=== PATIENT | female | born 1955 | race Caucasian/White ===

== ENCOUNTER → 2016-04-17 | Outpatient (CLI) | payer OTHER ==
[~2016-04-17] MED LIST: ABILIFY10 MG; ABILIFY15 MG PO; ACETAMINOPHEN325 M1; ACID CONTROLLER10 MG PO; ACTOS 30 MG TAB30 MG PO; ADULT LOW DOSE81 MG PO; ADVAIR 250-501 EACH IH; ADVAIR HFA 1112 UNIT INH; AFLURIA 2045 MCG/0.4; ALDACTONE25 MG PO; ALDACTONE50 MG PO; ALLEGRA180 MG PO; AMARYL4 MG PO; AMLODIPINE BESYL5 MG PO; AMOXICILLIN/POTASSIU OR; AMPICILLIN TRI500 MG PO; ASA81BEC; ASPIR 8181 MG PO; ASPIRIN EC81 M1 PO; ASPIRIN81 M2 PO; ATORVASTATIN CA20 MG PO; AUGMENTIN 875-1 EACH PO; AUGMENTIN 875875 MG PO; AVAPRO300 MG PO; B12INJ PO; BENICAR PO; BENICAR20 MG PO; BYETTA PEN 11 PENIN1 SUBQ; BYETTA PEN 11 PENINJ SUBQ; BYSTOLIC 5 MG5 M1 PO; CAL-LAC100 MG; CALCIUM OYSTER500 MG PO; CALCIUM PO; CARDIZEM CD180 MG PO; CARDURA2 MG PO; CARDURA4 MG PO; CARISOPRODOL 3350 MG PO; CARVEDILOL12.5 MG PO; CARVEDILOL25 MG PO; CARVEDILOL6.25 MG PO; CEFUROXIME250 MG PO; CENTRUM SILVER1 EAC1 PO; CIPRO250 M1 PO; CLEOCIN HCL300 MG PO; CLONAZEPAM 0.50.5 M1 PO; CLONAZEPAM 1 MG1 M1 PO; CLONAZEPAM PO; CLONIDINE HCL0.3 M3 PO; CLOPIDOGREL75 MG PO; CO Q-10100 MG PO; COREG CR20 MG PO; COREG25 MG PO; COUMADIN 2 MG TA2 M1; COUMADIN 2.5MG2.5 M1 PO; COUMADIN 3 MG TA3 M1 PO; COUMADIN 3 MG TA3 MG PO; COUMADIN 4 MG TA4 M1 PO; COUMADIN 5 MG TA5 M1; COUMADIN 5 MG TA5 M1 PO; COZAAR 25 MG TA25 M1 PO; CYCLOBENZAPRINE5 MG PO; CYMBALTA30 MG PO; CYMBALTA60 MG PO; DEMADEX20 MG PO; DEPAKOTE ER500 MG PO; DEX4 GLUCOSE1 EACH; DIABETA 5MG TABL5 MG PO; DILTIAZEM 24HR240 M1 PO; DIOVAN HCT 3201 EACH PO; DIOVAN160 MG PO; DIOVAN320 MG PO; DOXYCYCLINE 10100 MG PO; ENOXAPARIN100 MG/1 M SQ; ENOXAPARIN100 MG/11 SUBQ; FERREX 150150 MG PO; FISH OIL 1,0001 EAC5 PO; FISH OIL 1,2001 EAC4 PO; FUROSEMIDE 80 M80 M1 PO; GABAPENTIN 100100 MG PO; GLUCOPHAGE1000 MG PO; GLUCOSE 40% GEL; GLYBURIDE 1.21.25 MG PO; GLYBURIDE 5 MG T5 M1 PO; GLYBURIDE 5 MG T5 MG PO; GLYBURIDE PO; HUMALOG100 UNIT/2 SUBQ; HYDRALAZINE 2525 MG PO; HYDROCHLOROTHIA25 M1 PO; HYDROCODONE-AP1 EAC6 PO; HYDROCORTISONE 01 OZ TP; IMDUR 30 MG TAB30 M1; IMDUR 30 MG TAB30 M1 PO; INVOKAMET 50-51 EACH PO; IPRAT-ALBUT 0.5-3 ML IH; JANUVIA100 MG PO; K-DUR 20 MEQ T20 MEQ PO; KEFLEX500 MG PO; KLONOPIN0.5 MG PO; KLOR-CON 1010 MEQ PO; LACTINEX CHEWA1 EACH PO; LASIX 20 MG TAB20 MG PO; LEVAQUIN 500 M500 M2 PO; LEVEMIR SUBQ; LIPITOR10 MG PO; LIPITOR20 MG PO; LIPITOR40 MG PO; LISINOPRIL20 MG PO; MAG-OX 400 TAB400 MG PO; METFORMIN HCL500 MG PO; METOLAZONE 2.52.5 M1 PO; METOLAZONE 2.52.5 MG PO; MOTION RELIEF25 MG PO; MULTIVITAMINS; NADOLOL 20 MG T20 M1 PO; NIASPAN 500 MG500 M1 PO; NITROGLYCERIN0.4 MG SUBLING; NITROQUICK0.4 MG SUBLING; NORCO 5-325 TA1 EACH PO; NORVASC 5 MG TAB5 MG PO; NORVASC10 MG PO; NOVOLOG100 UNIT/1 SUBQ; NYSTATIN 1100000 U/M TOP; OMEGA-3100 MG PO; OMEPRAZOLE 20 M20 M1 PO; OMEPRAZOLE20 M2 PO; ONDANSETRON HCL4 M2 PO; OXYBUTYNIN 5 MG5 M1 PO; PACERONE 200 M200 M1 PO; PACERONE 200 M200 MG PO; PEPCID AC20 M1 PO; PEPCID20 MG PO; PEPCID40 MG PO; PERCOCET 10-321 EACH PO; PLAVIX 75 MG TA75 M1 PO; PNEUMOVAX25 MCG/0.5; POTASSIUM20 PO; PREDNISONE 10 M10 M1 PO; PREDNISONE10 MG PO; PRILOSEC 20 MG20 MG; PROAIR HFA8.5 GM; PROAIR HFA8.5 GM IH; PROAIR HFA8.5 GM INH; PROTONIX 20 MG20 M1 PO; PROTONIX40 M2 PO; REQUIP 1 MG TABL1 M1 PO; REQUIP1 MG PO; SEROQUEL 25 MG25 M1 PO; SEROQUEL 50 MG50 MG PO; SORINE 80 MG TA80 M1 PO; SORINE80 MG PO; SOTALOL160 MG PO; SPIRIVA INH; SPIRIVA18 MCG INH; STIOLTO RESPIMAT4 GM PO; SYMBICORT160 MCG/4. INH; TIKOSYN.5 PO; TOPAMAX100 MG PO; TORSEMIDE20 MG PO; TRAMADOL 50 MG50 MG PO; TYLENOL325 MG PO; ULTRAM 50MG TAB50 MG PO; VERAPAMIL E.R240 M1 PO; VESICARE10 M1 PO; VICTOZA0.6 MG/0.1; VICTOZA0.6 MG/0.1 SQ; VICTOZA0.6 MG/0.1 SUBQ; VITAMIN D1000 UNI1; VITAMIN D250000 UNIT PO; VITAMIN D35000 UNI1 PO; XOPENEX 0.63 MG/3 M1 INH; ZANAFLEX4 MG PO; ZANTAC 150MG T150 MG PO; ZANTAC PO; ZOLOFT100 MG PO
== END ==
LOC: RAD 01:14
DX: Z12.31 Encounter for screening mammogram for malignant neoplasm of breast (principal)

== ENCOUNTER 2016-06-19 14:11 | Inpatient (IN) | payer OTHER ==
[~2016-06-19] VITALS: Ht 162.6 cm; Wt 122.5 kg
[2016-06-19] VITALS (18 sets, daily range): BP systolic 112–155; BP diastolic 53–136
--- NOTE | ~2016-06-19 | EKG ---
[place] [address] [facility] [place] [address] ELECTROCARDIOGRAM REPORT Name: ANDREE SUTHERLAND Room #: 238-P ADM IN M.R.#: [id number] Admission: 06/19/16 Attend Phys: Mukesh Orona MD Discharge: Date of : 53 Report #: [id number] THIS REPORT FOR: //name// [facility] ED Test Date: 2016-06-19 Test Time: 14:20:38 Pat Name: ANDREE SUTHERLAND Department: Room: 238 Gender: F [employer] Coordinator: barry : 1955 Requested By: Muna Albrecht Order Number: [id number] MD: Augustine Paiz Measurements Intervals [place] Rate: 70 P: FL: QRS: -69 QRSD: 156 T: 94 QT: 469 QTc: 507 Interpretive Statements Afib and ventricular-paced rhythm No further analysis attempted due to paced rhythm Compared to ECG 03/28/2016 16:25:35 No significant changes Electronically Signed On 06-19-2016 19:10:49 CDT by Augustine Paiz [email or web address] <ELECTRONICALLY SIGNED> By: Augustine Paiz MD, [facility] 06/19/16 1910 1420 1420 Augustine Paiz MD, [facility] /EPI
--- NOTE | ~2016-06-19 | HC ---
[facility] [place] [address] CONSULTATION Name: ANDREE SUTHERLAND Room #: 238-P ADM IN M.R.#: [id number] Admission: 06/19/16 Attend Phys: Mukesh Orona MD Discharge: Date of : 53 Report #: [id number] THIS REPORT FOR: //name// CC: SHAHRZAD physician/PCP Mukesh Orona REASON FOR CONSULTATION: Respiratory failure. HISTORY OF PRESENT ILLNESS: The patient is a 60-year-old woman with history of permanent atrial fibrillation with AV node ablation and pacemaker implantation. She has a history of severe pulmonary hypertension and oxygen dependent lung disease. Apparently, she was found to be lethargic at home and paramedics were summoned. She was found with low oxygen saturations, confirmed in the emergency department and then intubated. Her history other than this is quite limited. She is currently sedated, intubated and ventilated. Her past history comes from review of the past medical record and includes a history of coronary artery disease with stenting in 2011 and then again medicated stent in 2012, permanent atrial fibrillation with AV node ablation and pacemaker implantation, oxygen dependent lung disease, bilateral hip replacements, diabetes, lung cancer with left lower lobectomy in 2015. Reported medicines include Seroquel, insulin, carvedilol 37.5 mg twice daily, glimepiride 2 mg daily, iron, losartan 25 mg daily, metolazone 2.5 mg daily, Aldactone 25 mg daily, potassium 40 mEq twice daily, atorvastatin 10 mg daily, torsemide 20 mg daily, warfarin 3 mg daily. She is allergic to LATEX, NONSTEROIDAL ANTI-INFLAMMATORY MEDICATIONS and TAPE. An echocardiogram, which I reviewed from a couple of months ago demonstrated normal left ventricular systolic function with right ventricular and right atrial enlargement and severe pulmonary hypertension. Pharmacologic stress study from June of 2015 was nonischemic. SOCIAL HISTORY: , former smoker. FAMILY HISTORY: Notable for heart disease in a father. REVIEW OF SYSTEMS: Not obtainable. PHYSICAL EXAMINATION: GENERAL: Reveals a comatose woman who is ventilated. VITAL SIGNS: Blood pressure is 112/76, heart rate is 78 and paced, saturations 92%, 5 feet 4 inches tall, 300 pounds. HEENT: There are neither xanthelasma, subcutaneous xanthomata, oral mucosal or digital cyanosis or kyphoscoliosis present. CHEST: Reveals diminished, but equal breath sounds. CARDIAC: Regular rate and rhythm with normal S1, S2. [address] [address] CONSULTATION Name: ANDREE SUTHERLAND Room #: 238-P [facility] IN [facility]#: [id number] Admission: 06/19/16 Attend Phys: Mukesh Orona MD Discharge: Date of : 53 Report #: [id number] ABDOMEN: Soft and morbidly obese. EXTREMITIES: Without cyanosis, clubbing or edema. Radial pulses are 2+. NEUROLOGIC: She is sedated with propofol. LABORATORY DATA: Sodium is 139, potassium 4.4, creatinine 1.1. ProBNP of 4679. INR of 2.8. White count 6.8, hemoglobin 11.6, hematocrit 35.7, platelet count 143. RADIOLOGICAL DATA: Chest x-ray demonstrates left-sided pacemaker, ectasia of the aorta, possible mild central vascular congestion. EKG: Atrial fibrillation with ventricular pacing. IMPRESSION: 1. Hypoxemic respiratory failure. 2. Severe pulmonary hypertension and right heart failure; core pulmonale. 3. Permanent atrial fibrillation with atrioventricular node ablation and pacemaker implantation. 4. Oxygen dependent lung disease. 5. Hypertension. 6. Coronary artery disease with remote stenting with fairly recent nonischemic stress study and documented normal left ventricular systolic function. 7. Lung cancer with prior left lower lobectomy. 8. Hypercoagulable condition. 9. Diabetes. 10. Anticoagulant therapy with therapeutic INR. RECOMMENDATIONS: 1. Pulmonary evaluation. I suspect that the patient's presentation is primarily related to exacerbation of her severe underlying lung disease. She does not appear to be significantly volume overloaded. I will interrogate her pacemaker. 2. Continued, lifelong anticoagulant therapy recommended with an INR between 2-3. At this point, no other cardiovascular testing is needed. An ischemic myocardial event is not suspected. Thank you for asking me to participate in her care. <ELECTRONICALLY SIGNED> By: Augustine Paiz MD, FACC 06/25/16 0811 1819 0824 Augustine Paiz MD, FACC /nt
--- NOTE | ~2016-06-19 | HC ---
[facility] [place] [address] CONSULTATION Name: ANDREE SUTHERLAND Room #: 238-P ADM IN M.R.#: [id number] Admission: 06/19/16 Attend Phys: Mukesh Orona MD Discharge: Date of : 53 Report #: [id number] THIS REPORT FOR: //name// CC: SHAHRZAD physician/PCP Mukesh Orona REASON FOR CONSULTATION: I was asked by Dr. Orona to evaluate the patient concerning pneumonia. HISTORY OF PRESENT ILLNESS: The patient is a 60-year-old with underlying COPD, obesity, previous left lower lobectomy for lung cancer, cardiomyopathy with ongoing pacemaker, found at home lethargic. Transported by EMS to the emergency room and now hospitalized on 06/19/2016. Initial chest x-ray was concerning for congestive heart failure. Subsequently, she has developed right middle lobe and lower lobe infiltrates. Moderate tracheal secretions. Low grade fever. PAST MEDICAL HISTORY: Bipolar disorder, migraine headaches, coronary artery disease, Vtach, pacemaker, hypertension, atrial fibrillation with previous ablation, on 4 liters of oxygen per nasal cannula, total knee arthroplasty, bilateral total hip arthroplasties, hysterectomy, stroke, pneumonia, diabetes, and lung cancer, non-small cell. FAMILY HISTORY: Noncontributory. SOCIAL HISTORY: Past smoker. Past alcohol use. REVIEW OF SYSTEMS: No nausea, vomiting, or diarrhea. No dysuria or frequency. ALLERGIES: NONSTEROIDAL ANTI-INFLAMMATORY, TAPE, and ASPIRIN. MEDICATIONS: Zosyn in addition to medications as noted on her JUN. PHYSICAL EXAMINATION: VITAL SIGNS: The patient was afebrile with maximum temperature 100.7 degrees earlier this morning, hemodynamically stable on an FIO2 of 50%. She was sedated on the ventilator. ET tube is in place. NECK: Supple. HEART: Regular without murmur. CHEST: Left chest pacemaker site unremarkable. LUNGS: Decreased breath sounds bilaterally with no wheezing. She did have scattered coarse breath sounds posteriorly. ABDOMEN: Soft, nontender, no hepatosplenomegaly or mass. EXTREMITIES: Unremarkable. She did have 2+ edema. No evidence for rash. LABORATORY STUDIES: Sodium 142, potassium 3.4, bicarb 40, creatinine 1, AST 12, bilirubin normal, alk phos 97, and ALT 11. BNP 4679. INR 2.8. Hemoglobin 11.6, white count 6.8, platelet count 143,000, 89% neutrophils, 2% bands. [address] [address] CONSULTATION Name: ANDREE SUTHERLAND Room #: 238-P [facility] IN .R.#: [id number] Admission: 06/19/16 Attend Phys: Mukesh Orona MD Discharge: Date of : 53 Report #: [id number] Urinalysis, 3+ glucose, otherwise unremarkable. ABG on 60%, pO2 of 68, pCO2 of 44, pH 7.56, lactate 1.5. Blood cultures are pending. No sputum culture obtained. Chest x-ray, right upper extremity PICC, left subclavian pacemaker, perihilar infiltrates with increasing infiltrate in the right lung and left lower lobe. IMPRESSION: A 60-year-old with respiratory failure, suspected aspiration pneumonia in the setting of severe pulmonary hypertension, chronic obstructive pulmonary disease, cor pulmonale, atrial fibrillation and underlying coronary disease. PLAN: We would recommend continuing broad antibiotic coverage. We will screen for MRSA and influenza. Also, screen urine antigens. Continue full support. <ELECTRONICALLY SIGNED> By: Malik Montoya MD 06/24/16 0934 0959 1516 Malik Montoya MD /nt
--- NOTE | ~2016-06-19 | 2DMMODE ---
[facility] [place] [address] 2 D/M-MODE ECHOCARDIOGRAM Name: ANDREE SUTHERLAND Room #: 238-P ADM IN .R.#: [id number] Admission: 06/19/16 Attend Phys: Soniya Dey Discharge: Date of : 53 Date of Service: 06/20/16 1036 Report #: [id number] THIS REPORT FOR: //name// APPROVED REPORT EXAM: Comprehensive 2D, Doppler, and color-flow Echocardiogram Patient Location: Echo lab Blood Pressure: 135/66 mmHg HR: 69 bpm Rhythm: Pacemaker Other Information Study Quality: Fair Indications COPD Diabetes Hypertension/HDD Pulmonary Hypertension PPM, Respiratory failure. 2D Dimensions RVDd: 49.25 mm LVEF(%): 43.92 (>50%) IVSd: 18.00 (7-11mm) LVOT Diam: 18.60 (18-24mm) LVDd: 46.88 mm PWd: 16.07 (7-11mm) Ascending Aorta: 30.56 mm LVDs: 36.72 (25-40mm) IVC: 26.00 mm Aortic Root: 33.00 mm Marks's LVEF: 43.92 % Volumes Left Atrial Volume (Systole) Single Plane 4CH: 100.96 mL Single Plane 2CH: 84.38 mL LA ESV Index: 44.00 mL/m2 Aortic Valve AoV Peak Neo.: 1.45 m/s AO Peak Gr.: 8.43 mmHg LV Max P.31 mmHg LV Max: 0.91 m/s Mitral Valve [facility] [address] [place] [address] 2 D/M-MODE ECHOCARDIOGRAM Name: ANDREE SUTHERLAND Room #: 238-P [facility] IN [facility].#: [id number] Admission: 06/19/16 Attend Phys: Soniya Dey Discharge: Date of : 53 Date of Service: 06/20/16 1036 Report #: [id number] PHT: 42.89 ms MV E Max Neo.: 1.35 m/s E/A Ratio: 7.1 MV A Neo.: 0.19 m/s MV Decel. Time: 147.90 ms Pulmonary Valve PV Peak Neo.: 0.87 m/s PV Peak Gr.: 3.03 mmHg Tricuspid Valve TR Peak Neo.: 3.33 m/s RAP Estimate: 15.00 mmHg TR Peak Gr.: 44.28 mmHg Left Ventricle The left ventricle is normal size. Moderate concentric left ventricular hypertrophy. Left ventricular systolic function is hyperdynamic. LVEF is 65-70%. Grade IV - fixed restrictive diastolic dysfunction. Right Ventricle Right ventricle is dilated. Right ventricle is hypokinetic. Atria Left atrium is dilated. Right atrium is dilated. Aortic Valve Aortic valve is trileaflet. Aortic valve is calcified. Mild aortic regurgitation. There is no aortic valvular stenosis. Mitral Valve The mitral valve is normal in structure. Mild mitral regurgitation. Tricuspid Valve The tricuspid valve is normal in structure. There is mild tricuspid regurgitation. The right atrial pressure is estimated at 15 mmHg. There is moderate-severe pulmonary hypertension. The estimated pulmonary artery pressure is 59 mmHg. Pulmonic Valve The pulmonary valve is normal in structure. Trace pulmonic regurgitation. Great Vessels The aortic root is normal in size. The inferior vena cava is dilated with no inspiratory collapse. [facility] [place] [address] 2 D/M-MODE ECHOCARDIOGRAM Name: ANDREE SUTHERLAND Room #: 238-P ADM IN M.R.#: [id number] Admission: 06/19/16 Attend Phys: Soniya Dey Discharge: Date of : 53 Date of Service: 06/20/16 1036 Report #: [id number] Pericardium There is no pericardial effusion. <Conclusion> The left ventricle is normal size. Moderate concentric left ventricular hypertrophy. LVEF is 65-70%. Right ventricle is dilated. Right ventricle is hypokinetic. Left atrium is dilated. Right atrium is dilated. Aortic valve is trileaflet. Aortic valve is calcified. Mild aortic regurgitation. Mild mitral regurgitation. There is mild tricuspid regurgitation. The right atrial pressure is estimated at 15 mmHg. There is moderate-severe pulmonary hypertension. The estimated pulmonary artery pressure is 59 mmHg. Trace pulmonic regurgitation. <ELECTRONICALLY SIGNED> By: Óscar Valle MD 06/20/16 1036 1036 1036 Óscar Valle MD /INF
[~2016-06-19 14:11] MED LIST changes: -AUGMENTIN 875-1 EACH PO; -CARVEDILOL25 MG PO; -ENOXAPARIN100 MG/11 SUBQ; -METOLAZONE 2.52.5 MG PO; -ZANAFLEX4 MG PO
[2016-06-19 14:35] LABS: HEMATOCRIT 35.7 % (37.0-47.0); HEMOGLOBIN 11.6 gm/dL (12.0-15.0); MANUAL DIFF YES; MCH 33.2 pg (26.0-34.0); MCHC 32.3 g/dL (28.0-37.0); MCV 102.7 fL (80.0-100.0); PLATELET COUNT 143 thou/uL (150-400); RBC 3.48 mil/uL (4.20-5.00); RDW 16.1 % (10.5-14.5); WBC 6.8 thou/uL (4.0-11.0)
[2016-06-19 14:44] LABS: ANION GAP < 0 mmol/L (7-16); BUN 21 mg/dL (7-18); CHLORIDE 99 mmol/L (98-107); CO2 42 mmol/L (21-32); CREATININE 1.1 mg/dL (0.6-1.3); GLUCOSE 298 mg/dL (70-99); POTASSIUM 4.4 mmol/L (3.5-5.1); SODIUM 139 mmol/L (136-145)
[2016-06-19 14:52] LABS: ALBUMIN 3.4 g/dL (3.4-5.0); ALKALINE PHOSPHATASE 121 U/L (46-116); DIRECT BILIRUBIN < 0.1 mg/dL (<0.1-0.3); SGOT 22 U/L (15-37); SGPT 18 U/L (30-65); TOTAL BILIRUBIN 0.3 mg/dL (<0.1-1.0); TOTAL PROTEIN 7.1 g/dL (6.4-8.2); TROPONIN-I < 0.04 ng/mL (<0.04-0.07)
[2016-06-19 14:53] LABS: APTT 37.7 Seconds (24.5-32.8); INR 2.8
[2016-06-19 15:04] LABS: URINE BILIRUBIN NEGATIVE (Negative); URINE BLOOD TRACE (Negative); URINE COLOR YELLOW; URINE GLUCOSE-RANDOM* 3+ (Negative); URINE KETONES NEGATIVE (Negative); URINE LEUKOCYTES-REFLEX NEGATIVE (Negative); URINE PROTEIN (DIPSTICK) NEGATIVE (Negative); URINE UROBILINOGEN 0.2 E.U./dl (0.2-1.0)
[2016-06-19 15:13] LABS: AMP/METHAMP Negative (Negative); BARBITURATES Negative (Negative); BENZODIAZEPINES Negative (Negative); COCAINE Negative (Negative); METHADONE Negative (Negative); OPIATES POSITIVE (Negative); PCP Negative (Negative); THC Negative (Negative)
[2016-06-19 15:13] LABS: ABSOLUTE NEUTROPHILS 6.2 thou/uL (1.4-8.2); PLATELET ESTIMATE NORMAL; TOTAL CELL COUNT 100
[2016-06-19 15:14] LABS: ABG SAMPLE TYPE ARTERIAL; BE(vivo) 12.3 mmol/L (-2 to +3); HCO3 43.7 mmol/L (22.0-26.0); LACTATE 1.34 mmol/L (0.5-2.0); O2(CT) 16.3 mL/dL (15.0-23.0); O2Hb 95.1 % (92.0-98.0); PCO2 105.3 mmHg (35.0-45.0); PO2 126.9 mmHg (80.0-100.0); STICK SITE R.BRACHIAL; pH 7.236 (7.360-7.450); sO2 97.7 % (92.0-98.0); tCO2 46.9 mmol/L (24.0-30.0)
[2016-06-19 15:16] LABS: ABG COMMENT BIPAP 18/10
[2016-06-19 17:05] LABS: ABG SAMPLE TYPE ARTERIAL; BE(vivo) 11.7 mmol/L (-2 to +3); HCO3 37.5 mmol/L (22.0-26.0); LACTATE 1.69 mmol/L (0.5-2.0); O2(CT) 14.5 mL/dL (15.0-23.0); O2Hb 86.9 % (92.0-98.0); PCO2 54.4 mmHg (35.0-45.0); PO2 51.9 mmHg (80.0-100.0); STICK SITE R.BRACHIAL; pH 7.456 (7.360-7.450); sO2 87.7 % (92.0-98.0); tCO2 39.1 mmol/L (24.0-30.0)
[2016-06-19 17:06] LABS: TIDAL VOLUME 500 ml
[2016-06-19 21:25] LABS: MAGNESIUM 1.6 mg/dL (1.8-2.4)
[2016-06-19 21:29] LABS: POTASSIUM 3.2 mmol/L (3.5-5.1)
[2016-06-20] VITALS (14 sets, daily range): BP systolic 116–147; BP diastolic 51–82
[2016-06-20 05:02] LABS: ALBUMIN 2.9 g/dL (3.4-5.0); CALCIUM 8.8 mg/dL (8.5-10.1); POTASSIUM 3.4 mmol/L (3.5-5.1); TOTAL BILIRUBIN 0.6 mg/dL (<0.1-1.0)
[2016-06-20 05:02] LABS: ABG SAMPLE TYPE ARTERIAL; BE(vivo) 15.3 mmol/L (-2 to +3); HCO3 39.1 mmol/L (22.0-26.0); LACTATE 1.54 mmol/L (0.5-2.0); O2(CT) 17.5 mL/dL (15.0-23.0); PCO2 44.2 mmHg (35.0-45.0); PO2 68.6 mmHg (80.0-100.0); STICK SITE R.RADIAL; TIDAL VOLUME 500 ml; pH 7.565 (7.360-7.450); sO2 95.6 % (92.0-98.0); tCO2 40.5 mmol/L (24.0-30.0)
[2016-06-20] MEDS ORDERED: CLONAZEPAM 1 MG1 M1 PO (15:41)
[2016-06-20] MEDS ORDERED: ZANAFLEX4 MG PO (15:43)
[2016-06-21] VITALS (27 sets, daily range): BP systolic 87–154; BP diastolic 35–85
[2016-06-21 04:08] LABS: HEMATOCRIT 32.6 % (37.0-47.0); HEMOGLOBIN 10.7 gm/dL (12.0-15.0); MCH 33.1 pg (26.0-34.0); MCHC 32.9 g/dL (28.0-37.0); MCV 100.5 fL (80.0-100.0); RBC 3.24 mil/uL (4.20-5.00); RDW 16.3 % (10.5-14.5); WBC 6.1 thou/uL (4.0-11.0)
[2016-06-21 04:17] LABS: CALCIUM 8.6 mg/dL (8.5-10.1); CREATININE 1.1 mg/dL (0.6-1.3); POTASSIUM 3.7 mmol/L (3.5-5.1)
[2016-06-21 04:20] LABS: INR 2.3; PROTIME 24.3 Seconds (9.3-11.4)
[2016-06-21 15:23] LABS: ABG SAMPLE TYPE ARTERIAL; HCO3 39.6 mmol/L (22.0-26.0); LACTATE 1.64 mmol/L (0.5-2.0); O2(CT) 16.5 mL/dL (15.0-23.0); O2Hb 94.4 % (92.0-98.0); PCO2 60.2 mmHg (35.0-45.0); PO2 83.4 mmHg (80.0-100.0); pH 7.436 (7.360-7.450); sO2 96.3 % (92.0-98.0); tCO2 41.5 mmol/L (24.0-30.0)
[2016-06-21 15:24] LABS: ABG COMMENT C-PAP; Pressure Support 6 cm H20; STICK SITE R.RADIAL
[2016-06-22] VITALS (26 sets, daily range): BP systolic 80–142; BP diastolic 35–73
[2016-06-22 05:37] LABS: HEMATOCRIT 33.9 % (37.0-47.0); HEMOGLOBIN 11.2 gm/dL (12.0-15.0); MCH 33.1 pg (26.0-34.0); MCHC 33.1 g/dL (28.0-37.0); MCV 100.3 fL (80.0-100.0); RBC 3.38 mil/uL (4.20-5.00); RDW 16.1 % (10.5-14.5); WBC 5.5 thou/uL (4.0-11.0)
[2016-06-22 05:44] LABS: CALCIUM 8.8 mg/dL (8.5-10.1); POTASSIUM 3.6 mmol/L (3.5-5.1)
[2016-06-22 05:49] LABS: INR 2.2; PROTIME 22.5 Seconds (9.3-11.4)
[2016-06-23] VITALS (26 sets, daily range): BP systolic 97–151; BP diastolic 54–82
[2016-06-23 05:40] LABS: HEMOGLOBIN 12.1 gm/dL (12.0-15.0); MCH 32.7 pg (26.0-34.0); MCHC 32.6 g/dL (28.0-37.0); MCV 100.5 fL (80.0-100.0); RBC 3.68 mil/uL (4.20-5.00); RDW 16.2 % (10.5-14.5); WBC 5.2 thou/uL (4.0-11.0)
[2016-06-23 05:49] LABS: CALCIUM 9.4 mg/dL (8.5-10.1); CREATININE 1.1 mg/dL (0.6-1.3)
[2016-06-23 05:55] LABS: APTT 41.1 Seconds (24.5-32.8); INR 1.9; PROTIME 20.1 Seconds (9.3-11.4)
[2016-06-23 11:53] LABS: ABG SAMPLE TYPE ARTERIAL; BE(vivo) 7.7 mmol/L (-2 to +3); HCO3 33.7 mmol/L (22.0-26.0); LACTATE 1.05 mmol/L (0.5-2.0); O2(CT) 18.1 mL/dL (15.0-23.0); O2Hb 95.2 % (92.0-98.0); PO2 88.5 mmHg (80.0-100.0); pH 7.421 (7.360-7.450); sO2 96.8 % (92.0-98.0); tCO2 35.3 mmol/L (24.0-30.0)
[2016-06-23 11:54] LABS: ABG COMMENT CPAP X 1 HR; Pressure Support 8 cm H20; STICK SITE L.BRACHIAL
[2016-06-24] VITALS (23 sets, daily range): BP systolic 103–158; BP diastolic 47–93
[2016-06-24 06:55] LABS: HEMATOCRIT 40.2 % (37.0-47.0); HEMOGLOBIN 13.1 gm/dL (12.0-15.0); MCH 32.6 pg (26.0-34.0); MCHC 32.7 g/dL (28.0-37.0); MCV 99.8 fL (80.0-100.0); RBC 4.03 mil/uL (4.20-5.00); RDW 15.5 % (10.5-14.5); WBC 6.6 thou/uL (4.0-11.0)
[2016-06-24 07:01] LABS: CALCIUM 9.7 mg/dL (8.5-10.1); CREATININE 0.8 mg/dL (0.6-1.3); POTASSIUM 3.5 mmol/L (3.5-5.1)
[2016-06-24 07:14] LABS: INR 1.4; PROTIME 14.8 Seconds (9.3-11.4)
[2016-06-24 22:06] LABS: INFLUENZA B Negative (Negative); METAPNEUMOVIRUS Negative (Negative)
[2016-06-25] VITALS (13 sets, daily range): BP systolic 98–137; BP diastolic 54–92
[2016-06-25 07:05] LABS: HEMATOCRIT 41.9 % (37.0-47.0); HEMOGLOBIN 13.7 gm/dL (12.0-15.0); MCH 32.6 pg (26.0-34.0); MCHC 32.7 g/dL (28.0-37.0); MCV 99.6 fL (80.0-100.0); RBC 4.2 mil/uL (4.20-5.00); RDW 15.6 % (10.5-14.5); WBC 5.7 thou/uL (4.0-11.0)
[2016-06-25 07:13] LABS: CALCIUM 9.6 mg/dL (8.5-10.1); INR 1.3
[2016-06-25] MEDS ORDERED: AUGMENTIN 875-1 EACH PO (11:19)
[2016-06-25] MEDS ORDERED: HYDROCODONE-AP1 EAC6 PO (11:19)
[2016-06-25] MEDS ORDERED: CARVEDILOL25 MG PO (11:19)
[2016-06-25] MEDS ORDERED: ENOXAPARIN100 MG/11 SUBQ (11:19)
[2016-06-25] MEDS ORDERED: COUMADIN 5 MG TA5 M1 PO (11:19)
[2016-06-25] MEDS ORDERED: AMARYL4 MG PO (11:19)
[2016-06-25] MEDS ORDERED: METOLAZONE 2.52.5 MG PO (11:19)
== END 2016-06-25 14:25 | DRG 208 ==
LOC: ER 14:11 → EROBS 16:15 → ICU 16:15
PROVIDERS: Emergency Medicine; Family Medicine; Internal Medicine Pulmonary Disease; Specialist
PROC: 5A1945Z Respiratory Ventilation, 24-96 Consecutive Hours (ICD-10-PCS; principal; 2016-06-19)
PROC: 05HB33Z Insertion of Infusion Device into Right Basilic Vein, Percutaneous Approach (ICD-10-PCS; principal; 2016-06-19)
PROC: 0BH17EZ Insertion of Endotracheal Airway into Trachea, Via Natural or Artificial Opening (ICD-10-PCS; principal; 2016-06-19)
PROC: 5A09357 Assistance with Respiratory Ventilation, Less than 24 Consecutive Hours, Continuous Positive Airway Pressure (ICD-10-PCS; 2016-06-23)
DX: J96.21 Acute and chronic respiratory failure with hypoxia (principal); I50.43 Acute on chronic combined systolic (congestive) and diastolic (congestive) heart failure; J69.0 Pneumonitis due to inhalation of food and vomit; I48.92 Unspecified atrial flutter; J44.1 Chronic obstructive pulmonary disease with (acute) exacerbation; J44.0 Chronic obstructive pulmonary disease with (acute) lower respiratory infection; Z68.42 Body mass index [BMI] 45.0-49.9, adult; I48.1 Persistent atrial fibrillation; I11.0 Hypertensive heart disease with heart failure; J96.22 Acute and chronic respiratory failure with hypercapnia; F31.9 Bipolar disorder, unspecified; E11.9 Type 2 diabetes mellitus without complications; G43.909 Migraine, unspecified, not intractable, without status migrainosus; I25.10 Atherosclerotic heart disease of native coronary artery without angina pectoris; E78.5 Hyperlipidemia, unspecified; Z96.652 Presence of left artificial knee joint; I27.2 Other secondary pulmonary hypertension; E66.9 Obesity, unspecified; Z87.891 Personal history of nicotine dependence; Z99.81 Dependence on supplemental oxygen; Z95.5 Presence of coronary angioplasty implant and graft; Z85.118 Personal history of other malignant neoplasm of bronchus and lung; Z79.4 Long term (current) use of insulin; Z79.01 Long term (current) use of anticoagulants; Z79.899 Other long term (current) drug therapy; Z23 Encounter for immunization; I25.2 Old myocardial infarction; Z90.710 Acquired absence of both cervix and uterus; Z95.0 Presence of cardiac pacemaker; Z86.73 Personal history of transient ischemic attack (TIA), and cerebral infarction without residual deficits; Z88.6 Allergy status to analgesic agent; Z88.8 Allergy status to other drugs, medicaments and biological substances; Z91.040 Latex allergy status; Z82.49 Family history of ischemic heart disease and other diseases of the circulatory system; Z96.643 Presence of artificial hip joint, bilateral; Z91.048 Other nonmedicinal substance allergy status; J96.02 Acute respiratory failure with hypercapnia
CPT/HCPCS: 10078; 27000